=== PATIENT | female | born 1985 | race Hispanic/Latino ===

== ENCOUNTER 2017-06-25 19:47 | Emergency (ER) | payer OTHER ==
[2017-06-25 19:55] VITALS: BP 111/53; RESP 20; O2SAT 98
[2017-06-25] MEDS ORDERED: Sodium Chloride 0.9% 1,000 ML IV STA (20:33)
--- NOTE | 2017-06-25 21:06 | ED PDOC ---
HPI: Abdomen Time Seen by Provider: 06/25/17 20:06 Chief Complaint (Nursing): Abdominal Pain History Per: Patient Additional Complaint(s): 31 y/o female with hx of GERD presents to ED with 1 day history of vomiting, abdominal and back pain, diarrhea and low grade fever. Pt states she had 3 episodes of non billous non bloody vomiting at 2am this morning associated with weakness. Also had 3 episodes of watery diarrhea, abdominal pain 5/10, lower back pain 7/10 with and measured temp of 100.3. States stool looked dark but patient also consumed charcoal prior. Tolerating PO, urinating normally. Recently traveled to [facility], [facility], and [facility], returned from trip Jun 02. No sick contacts. States she and her consumed [place] fish last night, has no symptoms. Denies dysuria, flank pain,, heart burn. Past Medical History Reviewed: Historical Data (Was hosptitalized 5 years prior for gastritis/Peptic Ulcer), Nursing Documentation, Vital Signs Vital Signs: Last Vital Signs Temp 98.7 F 06/25/17 22:11 Pulse 67 06/25/17 22:11 Resp 20 06/25/17 19:51 BP 111/53 L 06/25/17 19:51 Pulse Ox 98 06/25/17 21:59 - Medical History PMH: Gastritis, GERD - Surgical History Surgical History: No Surg Hx Denies: Appendectomy, Cholecystectomy, Hernia Repair - Family History Family History: States: No Known Family Hx - Social History Current smoker - smoking cessation education provided: Yes Alcohol: Social Drugs: Denies - Home Medications Home Medications: Ambulatory Orders Medication Instructions Recorded Dicyclomine [Bentyl] 20 mg PO Q12 PRN #20 tab 06/25/17 Ondansetron ODT [Zofran ODT] 4 mg PO Q6 PRN #8 odt 06/25/17 - Allergies Allergies/Adverse Reactions: Allergies Allergy/AdvReac Type Severity Reaction Status Date / Time No Known Allergies Allergy Verified 06/25/17 19:50 Review of Systems ROS Statement: Except As Marked, All Systems Reviewed And Found Negative Constitutional: Positive for: Fever. Negative for: Chills, Sweats, Weight loss ENT: Negative for: Ear Pain, Throat Pain, Throat Swelling Cardiovascular: Negative for: Chest Pain, Palpitations, Other Respiratory: Negative for: Cough, Shortness of Breath Gastrointestinal: Positive for: Nausea, Vomiting, Abdominal Pain, Diarrhea. Negative for: Constipation, Melena, Hematochezia, Hematemesis Genitourinary Female: Negative for: Dysuria, Hematuria Musculoskeletal: Positive for: Back Pain Skin: Negative for: Jaundice Neurological: Positive for: Weakness. Negative for: Confusion Physical Exam - Reviewed Nursing Documentation Reviewed: Yes Vital Signs Reviewed: Yes - Physical Exam Appears: Positive for: Well, Non-toxic, No Acute Distress Head Exam: Positive for: ATRAUMATIC, NORMAL INSPECTION Skin: Positive for: Normal Color. Negative for: Pallor, Jaundice Eye Exam: Positive for: Normal appearance, EOMI Neck: Positive for: Supple Cardiovascular/Chest: Positive for: Regular Rate, Rhythm. Negative for: Murmur Respiratory: Positive for: Normal Breath Sounds. Negative for: Accessory Muscle Use, Crackles Pulses-Dorsalis Pedis (L): 2+ Pulses-Dorsalis Pedis (R): 2+ Pulses-Radial (L): 2+ Pulses-Radial (R): 2+ Gastrointestinal/Abdominal: Positive for: Bowel Sounds, Soft, Tenderness ( Suprapubic tenderness). Negative for: Organomegaly, Mass, Distended, Guarding Back: Positive for: Normal Inspection. Negative for: L CVA Tenderness, R CVA Tenderness, Vertebral Tenderness, Decreased ROM Neurologic/Psych: Positive for: Alert, Oriented - Laboratory Results Result Diagrams: 06/25/17 20:51 06/25/17 20:51 - ECG O2 Sat by Pulse Oximetry: 98 Medical Decision Making Medical Decision Makin31 y/o female with hx of GERD presents to ED with vomiting, diarrhea, low grade fever, abdominal and back pain x 1 day. Tachycardiac with low grade fever on presentation. ED Course: -IV Fluids; 0.9 NS - Tylenol 650mg PO -Zofran 4mg IV -Pepcid 20mg IV -Dycyclomaine 20mg PO -Labs: CBC, CMP, Lipase, BCx, U/A, Urine, Lactate 1st Impression: Likely viral gastroenteritis given short duration and constellation of symptoms. Will need to r/o acute etiologies. Plan: Follow up labs, monitor progression of symptoms and vital signs. Disposition - Clinical Impression Clinical Impression: Gastroenteritis - Disposition Condition: STABLE Prescriptions: Dicyclomine [Bentyl] 20 mg PO Q12 PRN #20 tab PRN Reason: abdominal pain/diarrhea Ondansetron ODT [Zofran ODT] 4 mg PO Q6 PRN #8 odt PRN Reason: Nausea/Vomiting Forms: [facility] (I[place]ic)
[2017-06-25 21:08] LABS: RBC URINE < 1 /hpf (0-3); URINE BACTERIA FEW (<OCC); URINE BILIRUBIN NEGATIVE (NEGATIVE); URINE BLOOD SMALL (NEGATIVE); URINE COLOR STRAW (YELLOW); URINE GLUCOSE (UA) NEG (Normal); URINE KETONE NEGATIVE (NEGATIVE); URINE LEUKOCYTE ESTERASE NEG Leu/uL (Negative); URINE PROTEIN NEGATIVE (NEGATIVE); URINE UROBILINOGEN 0.2-1.0 mg/dL (0.2-1.0); WBC URINE 2 /hpf (0-5)
[2017-06-25 21:09] LABS: BASO % 0.2 % (0.0-2.0); EOS % 0.3 % (0.0-4.0); HEMATOCRIT 38.7 % (34.0-47.0); LYMPH # 0.6 K/uL (1.0-4.3); LYMPH % 10.6 % (20.0-40.0); MEAN CELL VOLUME 90.9 fl (81.0-99.0); MEAN CORPUSCULAR HEMOGLOBIN 31.5 pg (27.0-31.0); MEAN CORPUSCULAR HGB CONC 34.6 g/dL (33.0-37.0); MEAN PLATELET VOLUME 9.8 fl (7.2-11.7); MONO # 0.3 K/uL (0.0-0.8); MONO % 6.3 % (0.0-10.0); NEUT # 4.5 K/uL (1.8-7.0); NEUT % 82.6 % (50.0-75.0); RED CELL DISTRIBUTION WIDTH 12.2 % (11.5-14.5); WHITE BLOOD COUNT 5.4 K/uL (4.8-10.8)
[2017-06-25 21:24] LABS: ALB/GLOB RATIO 1.5 (1.0-2.1); ALKALINE PHOSPHATASE 46 U/L (38-126); ALT/SGPT 38 U/L (9-52); AST/SGOT 23 U/L (14-36); BILIRUBIN,TOTAL 1.6 mg/dl (0.2-1.3); BLOOD UREA NITROGEN 11 mg/dl (7-17); CALCIUM 9.2 mg/dL (8.4-10.2); CARBON DIOXIDE 26 mmol/L (22-30); CHLORIDE 103 mmol/L (98-107); GFR AFRICAN-AMERICAN > 60; GLUCOSE,RANDOM 122 mg/dL (65-105); LIPASE 89 U/L (23-300); POTASSIUM 3.9 MMOL/L (3.6-5.0); SODIUM 139 mmol/l (132-148); TOTAL PROTEIN 7.9 G/DL (6.3-8.2)
[2017-06-25 22:12] VITALS: PULSE 67; TEMP 98.7
== END 2017-06-25 22:48 | disposition home or self-care (01) ==
LOC: H.ER 19:47
DX: K52.9 Noninfective gastroenteritis and colitis, unspecified (principal); K21.9 Gastro-esophageal reflux disease without esophagitis
CPT/HCPCS: 80053; 81003; 81025; 83605; 83690; 85025; 87040; 96361; 96374; 96375; 99282; J2405; J7040